=== PATIENT | female | born 1960 | race Caucasian/White ===

== ENCOUNTER → 2016-10-18 | Outpatient (CLI) | payer OTHER ==
[~2016-10-18] MED LIST: ASPEC81 PO; BENA20TA14 PO; ERGO1CAP35 PO; METAMUCIL TABS PO; OXYC-57 PO; SIMV20TA2 PO; SPIR25TA PO; VITA400C15 PO
--- NOTE | 2016-10-18 13:57 | MAMMOGRAPHY REPORT ---
BILATERAL DIGITAL SCREENING MAMMOGRAM WITH CAD: 10/18/2016 TECHNIQUE: Current study was also evaluated with a Computer Aided Detection (CAD) system. Bilateral CC and MLO views were obtained. COMPARISON: Comparison is made to exams dated: 10/18/2015 mammogram, 10/12/2014 mammogram, 10/11/2013 twin mogram, 10/02/2012 mammogram, 09/26/2011 mammogram, and 09/05/2010 mammogram - [facility]. BREAST COMPOSITION: There are scattered areas of fibroglandular density in both breasts. FINDINGS: No suspicious masses, calcifications, or areas of architectural distortion are noted in ei ther breast. There has been no significant interval change compared to prior exams. A linear scar ma rker denotes a scar on the left upper inner breast. Benign-appearing left breast calcifications are again noted. Nodular asymmetry in the right inferior breast on the MLO view is stable dating back to at least the 2007 exam. IMPRESSION: ACR BI-RADS CATEGORY 2: BENIGN There is no mammographic evidence of malignancy. A 1 year screening mammogram is recommended. The pa tient will receive written notification of the results. Approximately 10% of breast cancers are not detected with mammography. A negative mammographic report should not delay biopsy if a clinically suggestive mass is present. Bridget Arriaga M.D. /:10/18/2016 10:24:27 Ornament Stapler: Neema VERGARA(Grace)(Vijay), [facility] letter sent: Normal 1/2 BI-RADS Code: ACR BI-RADS Category 2: Benign
== END | disposition home or self-care (01) ==
LOC: C.MAMM 10:11
PROVIDERS: ATTEND Family Medicine
DX: Z12.31 Encounter for screening mammogram for malignant neoplasm of breast (principal)

== ENCOUNTER 2022-03-26 17:42 | Inpatient (IN) ==
[2022-03-26] MEDS ORDERED: SODIUM CHLORIDE 0.9% 1000ML 1,000 ML IV SCH (18:00)
--- NOTE | 2022-03-26 18:10 | Emergency Department Note ---
Impression & Plan Acute hyponatremia, Acute dehydration, Weakness, Abnormal CT of the head ED Provider Note NAME: BILLY POLANCO AGE: 61 SEX: F : 1960 ARRIVES VIA: Ambulance INFORMANT: Patient, the patient's family members ED PROVIDER(S): Patrick Guzmán DO CHIEF COMPLAINT: Weakness HPI: The patient is a 61-year-old female who has a history of a mass in her brain that was recently biopsied. 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 She had a biopsy a week ago and was sent to [facility] for inpatient rehab. She is not been doing well there where she has been having decreased p.o. intake and decreased activity including not involving her self with therapy. She had outpatient labs that showed that she is not doing well. She was sent to the emergency department by the rehab physician with the hopes that she could be admitted and placed somewhere for intensive inpatient rehab. The patient himself denies having any pain. She denies having any headache. She has no reported nausea or vomiting. She does state that she has very poor appetite. She has right-sided weakness at baseline because of the mass. She has had no recent trauma. ROS: See above HPI for pertinent positives & negatives. A total of 10 systems reviewed and were otherwise negative. PAST MEDICAL HISTORY: See Below PAST SURGICAL HISTORY: See Below FAMILY HISTORY: See Below SOCIAL HISTORY: See Below HOME MEDICATIONS: See Below ALLERGIES: See Below VITALS: See Below PHYSICAL EXAMINATION: GENERAL: Patient is listless but responds to questions. She does not appear to be uncomfortable. EYES: The conjunctivae are clear. The pupils midsize. There is reactivity of the left pupil. Ptosis was noted of the left eye. EARS, NOSE, MOUTH AND THROAT: The nose is without any evidence of any deformity. Mucous membranes are dry. NECK: The neck is nontender and supple. RESPIRATORY: Normal respiratory effort is noted there is no evidence of wheezing rhonchi or rales CARDIOVASCULAR: Regular rate and rhythm noted there no murmurs rubs or gallops normal S1 normal S2. GASTROINTESTINAL: The abdomen is soft. Abdomen is nontender. MUSCULOSKELETAL/EXTREMITIES: There is no evidence of gross deformity full range of motion is noted in the hips and shoulders. SKIN: No significant edema was appreciated. NEUROLOGIC: The patient is awake to verbal commands. She appears to be able to move her left side to some degree. MEDICAL DECISION MAKING: The patient is a 61-year-old female who has a history of renal transplant presented to the emergency department for generalized weakness. The patient has a recently diagnosed intracranial lesion which was biopsied recently. 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 The patient was sent to [facility] for inpatient rehab. She has not been doing well there. She has been having decreased p.o. intake and not participating in rehab activities. She was noted to have abnormal labs by the inpatient rehab doctor so she was sent to the emergency department for further evaluation. They do not feel that she is a good candidate for further inpatient management at their facility. I discussed the patient's laboratory and radiographic studies with the family. The patient was started on IV fluids in the emergency department. Because of her findings I [facility] to evaluate the patient in the emergency department for further management and disposition. Patient was given empiric antibiotics for an alanna vated white blood cell count. No definite infectious source was found. She was also cultured. Triage Nursing notes reviewed. Prior medical records reviewed Vital Signs: reviewed and remarkable for no significant abnormalities Differential diagnosis: Infection, dehydration, metabolic abnormality, hypo/hyperglycemia, electrolyte disturbance, anemia, hypoxia, cardiac sources, intracerebral event, toxicologic, neurologic, as well as other pathologies. ER treatment provided: See below Diagnostics interpreted by me: ECG: EKG was obtained in the emergency department. My interpretation is normal sinus rhythm at 92 bpm. There was no ectopy. Nonspecific T wave abnormalities were noted in the high lateral leads. This was compared to a tracing from April 16, 2010. No changes were noted. Cardiac Monitoring: An order was placed for continuous cardiac monitoring. The monitor shows a rate of 90 bpm with sinus rhythm. Laboratory studies: As stated above and show below. Imaging studies: See below. Radiographic imaging was reviewed by myself Consultation(s): I discussed this case with Dr. Phipps who [facility]. Past Med/Surg History Medical History CKD (chronic kidney disease) F/U DR JOHN WELLS Elevated LFTs Hyperlipidemia Hypertension Liver lesion Pancreatic cyst Peritoneal dialysis catheter in place PERFORMS NIGHTLY SINCE 03/22/21 Surgical History Abnormal biopsy of kidney X2 History of section X2 History of cholecystectomy History of colonoscopy History of hysterectomy History of parathyroidectomy HX: benign breast biopsy LEFT Nausea and vomiting after administration of anesthetic agent WITH BREAST BIOPSY Family History Mother Family history of diabetes mellitus Social History Smoking Status: Never smoker Second Hand Exposure: No; Do You Dip or Chew Tobacco: No; Hx Alcohol Use: No Hx Substance Use: No Preferred Language: Belarusian Communication Ability: Impaired Draw String Knotter Required: No Beliefs That Will Affect Care: None Current Living Situation: Rehab Current Living Situation Comment: [facility] current occupational status: retired Other Information That Helps Us Care for You: No Feels Safe at Home: Yes Safety Concerns: Feels Safe At This Time Assistive Devices: Glasses, Hearing Aid - Bilateral and Walker Allergies Allergies Allergy/AdvReac Type Severity Reaction Status Date / Time Sulfa (Sulfonamide Allergy Intermediate RED RASH Verified 03/26/22 20:51 Antibiotics) tramadol AdvReac Intermediate "MAKES ME Verified 03/26/22 20:51 OUT THERE AND SICK" amoxicillin [From Augmentin] AdvReac Unknown Nausea Verified 03/26/22 20:51 clavulanic acid AdvReac Unknown Nausea Verified 03/26/22 20:51 [From Augmentin] Home Meds Home Medications Medication Instructions Recorded Confirmed amlodipine 5 mg tablet 5 mg PO QAM 07/03/21 03/26/22 docusate sodium 100 mg capsule 100 mg PO BIDM 07/03/21 03/26/22 (Dulcolax Stool Softener (docusate)) acetaminophen 325 mg tablet 650 mg PO Q4H PRN Pain (Scale 03/26/22 03/26/22 (Tylenol) Score 1-3) atorvastatin 20 mg tablet 20 mg PO DAILY 03/26/22 03/26/22 bisacodyl 10 mg rectal suppository 10 mg VT DAILY PRN Constipation 03/26/22 03/26/22 insulin aspart U-100 100 unit/mL 6 unit subcut TIDM 03/26/22 03/26/22 subcutaneous solution (Novolog U-100 Insulin aspart) magnesium hydroxide 400 mg/5 mL 30 ml PO DAILY PRN Constipation 03/26/22 03/26/22 oral suspension (Milk of Magnesia) ondansetron HCl 4 mg tablet 4 mg PO Q4H PRN NAUSEA/VOMITING 03/26/22 03/26/22 polyethylene glycol 3350 17 17 g PO QDL PRN Constipation 03/26/22 03/26/22 gram/dose oral powder (Miralax) prednisone 10 mg tablet 10 mg PO DIRECTED 03/26/22 03/26/22 sennosides 8.6 mg-docusate sodium 1 tab-cap PO QDL PRN Constipation 03/26/22 03/26/22 50 mg tablet (Senokot-S) sodium phosphates 19 gram-7 118 ml VT DAILY PRN Constipation 03/26/22 03/26/22 gram/118 mL enema (Fleet Enema) sulfamethoxazole 800 1 tab PO Q12H 03/26/22 03/26/22 mg-trimethoprim 160 mg tablet (Bactrim DS) tacrolimus 1 mg tablet,extended 2 mg PO DAILY 03/26/22 03/26/22 release 24 hr (Envarsus XR) urea 15 gram oral powder packet 1 packet PO BIDM 03/26/22 03/26/22 Results & Data (ED) Vital Signs Vital Signs - 24 hr 03/26/22 17:55 03/26/22 17:55 03/26/22 17:55 Temperature 37.0 C Temperature Source Oral Pulse Rate 92 H Pulse Rate [Apical] Pulse Rhythm Regular Pulse Rhythm [Apical] Pulse Strength Normal Pulse Strength [Apical] Respiratory Rate 18 16 Respiratory Effort / Characteristics Non-Labored Non-Labored Respiratory Depth Normal Normal Respiratory Pattern Regular Regular Blood Pressure 96/73 L Blood Pressure [Left Arm] Blood Pressure Mean 80 Blood Pressure Mean [Left Arm] Blood Pressure Position Lying Blood Pressure Position [Left Arm] Pulse Oximetry 92 93 Oxygen Delivery Method Room Air Room Air Room Air Sepsis Recent Fever Within 48 Hours No Sepsis New/Unexplained Change in Mental Status No Sepsis Action Taken by Nursing No Action Required 03/26/22 18:00 03/26/22 20:00 Temperature Temperature Source Pulse Rate Pulse Rate [Apical] 84 Pulse Rhythm Pulse Rhythm [Apical] Regular Pulse Strength Pulse Strength [Apical] Normal Respiratory Rate 16 18 Respiratory Effort / Characteristics Non-Labored Respiratory Depth Normal Respiratory Pattern Regular Blood Pressure Blood Pressure [Left Arm] 116/77 Blood Pressure Mean Blood Pressure Mean [Left Arm] 90 Blood Pressure Position Blood Pressure Position [Left Arm] Lying Pulse Oximetry 100 Oxygen Delivery Method Room Air Room Air Sepsis Recent Fever Within 48 Hours Sepsis New/Unexplained Change in Mental Status Sepsis Action Taken by Long-Term Medications Current Medication List: was personally reviewed by me Laboratory Data Attestation: I reviewed the patient's lab results. 03/26/22 18:12 03/26/22 21:30 Lab Results 03/26/22 03/26/22 03/26/22 Range/Units 18:12 18:12 18:12 WBC 20.48 H (4.8-10.8) K/ul RBC 5.35 H (3.93-5.22) M/uL Hgb 16.5 H (12.0-16.0) g/dl Hct 48.7 H (34.1-44.9) % MCV 91.0 (80.0-100.0) fL MCH 30.8 (25.0-34.0) pg MCHC 33.9 (32.0-36.0) g/dL RDW Std Deviation 50.6 H (36.4-46.3) fL RDW Coeff of Luz 15.3 H (11.5-14.5) % Plt Count 46 L (130-400) K/uL MPV 12.1 (9.4-12.3) fL Immature Gran % (Auto) 2.5 % Neut % (Auto) 74.2 % Lymph % (Auto) 17.8 % [place] % (Auto) 4.9 % Eos % (Auto) 0.1 % Baso % (Auto) 0.5 % Neut # (Auto) 15.19 H (1.4-6.5) K/uL Lymph # (Auto) 3.64 H (1.2-3.4) K/uL [place] # (Auto) 1.01 H (0.24-0.82) K/uL Eos # (Auto) 0.02 (0-0.50) K/uL Baso # (Auto) 0.11 (0-0.2) K/uL Immature Gran # (Auto) 0.51 H (0.00-0.02) K/uL Platelet Estimate Decreased L (Normal) PT 11.0 (9.0-12.0) Seconds INR 1.0 (0.9-1.1) APTT 34.9 H (21.0-31.0) Seconds PTT Ratio 1.3 Sodium 124 L (136-145) mmol/L Potassium TNP Chloride 95 L (98-107) mmol/L Carbon Dioxide 21 (21-32) mmol/L Anion Gap 8 (3-11) BUN 55 H (6-23) mg/dl Creatinine 1.44 H (0.6-1.2) mg/dl Est Cr Clr Drug Dosing 41.4 ml/min Est GFR ( Amer) 44.7 ml/min Est GFR (Non-Af Amer) 38.6 ml/min BUN/Creatinine Ratio 38.2 H (10-20) Glucose 219 H (70-99(Fasting)) mg/dl Osmolality (280-300) mOsm/kg Calcium 9.0 (8.5-10.1) mg/dl Magnesium 2.0 (1.7-2.4) mg/dl Total Bilirubin 0.6 (0.2-1.0) mg/dl AST TNP ALT 263 H (7-52) U/L Alkaline Phosphatase 223 H (34-104) U/L Ammonia (18-72) umol/L Total Creatine Kinase 42 (26-192) U/L Troponin I High Sens 65.6 H* (0-14) pg/ml Total Protein 6.2 (6.0-8.3) gm/dl Albumin 2.9 L (3.4-5.0) gm/dl Globulin 3.3 (2.5-4.0) gm/dl Albumin/Globulin Ratio 0.9 (0.9-2) TSH (0.300-4.500) uIu/ml Random Cortisol mcg/dl Urine Color Urine Appearance (Clear) Urine pH (4.5-7.5) Ur Specific [place] (1.000-1.030) Urine Protein (Negative) Urine Glucose (UA) (Negative) Urine Ketones (Negative) Urine Blood (Negative) Urine Nitrite (Negative) Urine Bilirubin (Negative) Urine Urobilinogen (Negative) Ur Leukocyte Esterase (Negative) Urine WBC (Auto) (0-5) /hpf Urine RBC (Auto) (0-4) /hpf U Hyaline Cast (Auto) (0-5) /lpf U Epithel Cells (Auto) (0-5) /lpf Urine Bacteria (Auto) (Negative) SARS-CoV-2, RNA, NAAT (NEGATIVE) 03/26/22 03/26/22 03/26/22 Range/Units 18:12 18:12 18:12 WBC (4.8-10.8) K/ul RBC (3.93-5.22) M/uL Hgb (12.0-16.0) g/dl Hct (34.1-44.9) % MCV (80.0-100.0) fL MCH (25.0-34.0) pg MCHC (32.0-36.0) g/dL RDW Std Deviation (36.4-46.3) fL RDW Coeff of Luz (11.5-14.5) % Plt Count (130-400) K/uL MPV (9.4-12.3) fL Immature Gran % (Auto) % Neut % (Auto) % Lymph % (Auto) % [place] % (Auto) % Eos % (Auto) % Baso % (Auto) % Neut # (Auto) (1.4-6.5) K/uL Lymph # (Auto) (1.2-3.4) K/uL [place] # (Auto) (0.24-0.82) K/uL Eos # (Auto) (0-0.50) K/uL Baso # (Auto) (0-0.2) K/uL Immature Gran # (Auto) (0.00-0.02) K/uL Platelet Estimate (Normal) PT (9.0-12.0) Seconds INR (0.9-1.1) APTT (21.0-31.0) Seconds PTT Ratio Sodium (136-145) mmol/L Potassium Chloride (98-107) mmol/L Carbon Dioxide (21-32) mmol/L Anion Gap (3-11) BUN (6-23) mg/dl Creatinine (0.6-1.2) mg/dl Est Cr Clr Drug Dosing ml/min Est GFR ( Amer) ml/min Est GFR (Non-Af Amer) ml/min BUN/Creatinine Ratio (10-20) Glucose (70-99(Fasting)) mg/dl Osmolality (280-300) mOsm/kg Calcium (8.5-10.1) mg/dl Magnesium (1.7-2.4) mg/dl Total Bilirubin (0.2-1.0) mg/dl AST ALT (7-52) U/L Alkaline Phosphatase (34-104) U/L Ammonia (18-72) umol/L Total Creatine Kinase (26-192) U/L Troponin I High Sens (0-14) pg/ml Total Protein (6.0-8.3) gm/dl Albumin (3.4-5.0) gm/dl Globulin (2.5-4.0) gm/dl Albumin/Globulin Ratio (0.9-2) TSH 1.192 (0.300-4.500) uIu/ml Random Cortisol 20.79 mcg/dl Urine Color Urine Appearance (Clear) Urine pH (4.5-7.5) Ur Specific [place] (1.000-1.030) Urine Protein (Negative) Urine Glucose (UA) (Negative) Urine Ketones (Negative) Urine Blood (Negative) Urine Nitrite (Negative) Urine Bilirubin (Negative) Urine Urobilinogen (Negative) Ur Leukocyte Esterase (Negative) Urine WBC (Auto) (0-5) /hpf Urine RBC (Auto) (0-4) /hpf U Hyaline Cast (Auto) (0-5) /lpf U Epithel Cells (Auto) (0-5) /lpf Urine Bacteria (Auto) (Negative) SARS-CoV-2, RNA, NAAT POSITIVE A* (NEGATIVE) 03/26/22 03/26/22 03/26/22 Range/Units 18:21 20:54 21:12 WBC (4.8-10.8) K/ul RBC (3.93-5.22) M/uL Hgb (12.0-16.0) g/dl Hct (34.1-44.9) % MCV (80.0-100.0) fL MCH (25.0-34.0) pg MCHC (32.0-36.0) g/dL RDW Std Deviation (36.4-46.3) fL RDW Coeff of Luz (11.5-14.5) % Plt Count (130-400) K/uL MPV (9.4-12.3) fL Immature Gran % (Auto) % Neut % (Auto) % Lymph % (Auto) % [place] % (Auto) % Eos % (Auto) % Baso % (Auto) % Neut # (Auto) (1.4-6.5) K/uL Lymph # (Auto) (1.2-3.4) K/uL [place] # (Auto) (0.24-0.82) K/uL Eos # (Auto) (0-0.50) K/uL Baso # (Auto) (0-0.2) K/uL Immature Gran # (Auto) (0.00-0.02) K/uL Platelet Estimate (Normal) PT (9.0-12.0) Seconds INR (0.9-1.1) APTT (21.0-31.0) Seconds PTT Ratio Sodium (136-145) mmol/L Potassium Chloride (98-107) mmol/L Carbon Dioxide (21-32) mmol/L Anion Gap (3-11) BUN (6-23) mg/dl Creatinine (0.6-1.2) mg/dl Est Cr Clr Drug Dosing ml/min Est GFR ( Amer) ml/min Est GFR (Non-Af Amer) ml/min BUN/Creatinine Ratio (10-20) Glucose (70-99(Fasting)) mg/dl Osmolality 288 (280-300) mOsm/kg Calcium (8.5-10.1) mg/dl Magnesium (1.7-2.4) mg/dl Total Bilirubin (0.2-1.0) mg/dl AST ALT (7-52) U/L Alkaline Phosphatase (34-104) U/L Ammonia 55.0 (18-72) umol/L Total Creatine Kinase (26-192) U/L Troponin I High Sens (0-14) pg/ml Total Protein (6.0-8.3) gm/dl Albumin (3.4-5.0) gm/dl Globulin (2.5-4.0) gm/dl Albumin/Globulin Ratio (0.9-2) TSH (0.300-4.500) uIu/ml Random Cortisol mcg/dl Urine Color Yellow Urine Appearance Clear (Clear) Urine pH 6.0 (4.5-7.5) Ur Specific [place] 1.025 (1.000-1.030) Urine Protein Trace H (Negative) Urine Glucose (UA) Negative (Negative) Urine Ketones Negative (Negative) Urine Blood Negative (Negative) Urine Nitrite Negative (Negative) Urine Bilirubin Negative (Negative) Urine Urobilinogen Negative (Negative) Ur Leukocyte Esterase Negative (Negative) Urine WBC (Auto) 1-5 (0-5) /hpf Urine RBC (Auto) 0-4 (0-4) /hpf U Hyaline Cast (Auto) 1-5 (0-5) /lpf U Epithel Cells (Auto) 5-10 H (0-5) /lpf Urine Bacteria (Auto) Negative (Negative) SARS-CoV-2, RNA, NAAT (NEGATIVE) 03/26/22 03/26/22 03/26/22 Range/Units 21:30 21:30 21:30 WBC (4.8-10.8) K/ul RBC (3.93-5.22) M/uL Hgb (12.0-16.0) g/dl Hct (34.1-44.9) % MCV (80.0-100.0) fL MCH (25.0-34.0) pg MCHC (32.0-36.0) g/dL RDW Std Deviation (36.4-46.3) fL RDW Coeff of Luz (11.5-14.5) % Plt Count (130-400) K/uL MPV (9.4-12.3) fL Immature Gran % (Auto) % Neut % (Auto) % Lymph % (Auto) % [place] % (Auto) % Eos % (Auto) % Baso % (Auto) % Neut # (Auto) (1.4-6.5) K/uL Lymph # (Auto) (1.2-3.4) K/uL [place] # (Auto) (0.24-0.82) K/uL Eos # (Auto) (0-0.50) K/uL Baso # (Auto) (0-0.2) K/uL Immature Gran # (Auto) (0.00-0.02) K/uL Platelet Estimate (Normal) PT (9.0-12.0) Seconds INR (0.9-1.1) APTT (21.0-31.0) Seconds PTT Ratio Sodium (136-145) mmol/L Potassium 5.3 H Chloride (98-107) mmol/L Carbon Dioxide (21-32) mmol/L Anion Gap (3-11) BUN (6-23) mg/dl Creatinine (0.6-1.2) mg/dl Est Cr Clr Drug Dosing ml/min Est GFR ( Amer) ml/min Est GFR (Non-Af Amer) ml/min BUN/Creatinine Ratio (10-20) Glucose (70-99(Fasting)) mg/dl Osmolality (280-300) mOsm/kg Calcium (8.5-10.1) mg/dl Magnesium (1.7-2.4) mg/dl Total Bilirubin (0.2-1.0) mg/dl AST 146 H ALT (7-52) U/L Alkaline Phosphatase (34-104) U/L Ammonia (18-72) umol/L Total Creatine Kinase 44 (26-192) U/L Troponin I High Sens 69.9 H* (0-14) pg/ml Total Protein (6.0-8.3) gm/dl Albumin (3.4-5.0) gm/dl Globulin (2.5-4.0) gm/dl Albumin/Globulin Ratio (0.9-2) TSH (0.300-4.500) uIu/ml Random Cortisol mcg/dl Urine Color Urine Appearance (Clear) Urine pH (4.5-7.5) Ur Specific [place] (1.000-1.030) Urine Protein (Negative) Urine Glucose (UA) (Negative) Urine Ketones (Negative) Urine Blood (Negative) Urine Nitrite (Negative) Urine Bilirubin (Negative) Urine Urobilinogen (Negative) Ur Leukocyte Esterase (Negative) Urine WBC (Auto) (0-5) /hpf Urine RBC (Auto) (0-4) /hpf U Hyaline Cast (Auto) (0-5) /lpf U Epithel Cells (Auto) (0-5) /lpf Urine Bacteria (Auto) (Negative) SARS-CoV-2, RNA, NAAT (NEGATIVE) Administered Medications Insulin Aspart (Insulin Aspart Per Unit) 0 units SC ACHS JUSTIN Stop: 04/26/22 00:18 Last Admin: 03/27/22 00:39 Dose: Not Given Documented By: ALH Discontinued Medications Gadobutrol (Gadobutrol 65ml Vial) 7 ml IV ONCE ONE Stop: 03/26/22 23:10 Last Admin: 03/26/22 23:09 Dose: 7 ml Documented By: ESHA Sodium Chloride (Nss 1000ml) 1,000 mls @ 999 mls/hr IV .Q1H1M JUSTIN Stop: 03/26/22 19:00 Last Infusion: 03/26/22 19:24 Dose: 0 mls/hr Documented By: Admin: 03/26/22 18:16 Dose: 999 mls/hr Documented By: SR Sodium Chloride (Nss 1000ml) 1,000 mls @ 999 mls/hr IV .Q1H1M ONE Stop: 03/26/22 21:16 Last Infusion: 03/26/22 22:44 Dose: 0 mls/hr Documented By: Admin: 03/26/22 21:49 Dose: 999 mls/hr Documented By: MATS Ceftriaxone Sodium (Rocephin) 2,000 mg in 70 mls @ 140 mls/hr IV NOW STA Stop: 03/26/22 20:45 Last Infusion: 03/26/22 22:28 Dose: 0 mls/hr Documented By: Admin: 03/26/22 21:49 Dose: 140 mls/hr Documented By: KARLA Trimethoprim/Sulfamethoxazole (Sulfamethoxazole/Trimethoprim Ds 800/160mg Tab) 1 tab PO 0100 ONE Stop: 03/27/22 01:01 Last Admin: 03/27/22 01:41 Dose: 1 tab Documented By: DRISS Imaging Data Radiologist's Impression: Chest X-Ray 03/26/22 17:59 XR chest 1V portable HISTORY: weakness COMPARISON: Chest 04/16/2010. FINDINGS: The lungs are clear. Cardiac silhouette is normal in size. No pleural effusions. No pneumothorax. Prior cholecystectomy. IMPRESSION: No acute process. ACT 112: Negative or not required by law. Electronically signed by: Danis Morrison M.D. 03/26/2022 8:[address] 03/26/22 17:[address] DOSE: 537.48 mGy.cm HISTORY: weakness TECHNIQUE: Multiaxial CT images of the head were performed without the use of intravenous contrast. Automated exposure control was utilized for this study. A dose lowering technique was utilized adhering to the principles of ALARA. Comparison: None. Findings: The paranasal sinuses and mastoid air cells are clear. Prior left parietal craniotomy. Small extra-axial hyperdense collection and a punctate focus of gas deep to the craniotomy site. The hyperdense collection measures 3.1 x 1.0 cm. This could represent expected postoperative fluid collection or a small focus of extra-axial hemorrhage. 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 Mild atrophy and microvascular ischemic changes are noted. No acute infarct or midline shift identified. Impression: Status post left parietal craniotomy. Deep to the craniotomy site there is a 3.1 x 1.0 cm hyperdense extra-axial collection containing a punctate focus of gas. This could represent an expected postoperative fluid collection or a small focus of acute extra-axial hemorrhage. Comparison to prior studies would be helpful to assess for stability. ACT 112: Negative or not required by law. Electronically signed by: Danis Morrison M.D. 03/26/2022 8:07 PM Discharge Plan Visit Data Chief Complaint: Weakness Stated Complaint: WEAKNESS, LETHARGIC ED Provider: Patrick Guzmán Discharge Problem: Acute hyponatremia, Acute dehydration, Weakness, Abnormal CT of the head Patient Disposition: Admitted As Inpatient Discharge Instructions Interventions: ED Discharge Assessment Last Done: 03/26/22 23:52
[2022-03-26 18:50] LABS: Partial Thromboplastin Ratio 1.3; Partial Thromboplastin Time 34.9 Seconds (21.0-31.0)
[2022-03-26 19:08] LABS: Troponin I High Sensitivity 65.6 pg/ml (0-14)
[2022-03-26 19:21] LABS: Alanine Aminotransferase 263 U/L (7-52); Albumin Globulin Ratio 0.9 (0.9-2); Albumin Level 2.9 gm/dl (3.4-5.0); Alkaline Phosphatase 223 U/L (34-104); Anion Gap 8 (3-11); BUN Creatinine Ratio 38.2 (10-20); Bilirubin,Total 0.6 mg/dl (0.2-1.0); Blood Urea Nitrogen 55 mg/dl (6-23); Carbon Dioxide 21 mmol/L (21-32); Chloride 95 mmol/L (98-107); Creatine Kinase 42 U/L (26-192); Creatinine Clr Calc Pharmacy 41.4 ml/min; Est GFR (African American) 44.7 ml/min; Est GFR (Non-African American) 38.6 ml/min; Globulin 3.3 gm/dl (2.5-4.0); Glucose 219 mg/dl (70-99(Fasting)); Sodium 124 mmol/L (136-145); Total Protein 6.2 gm/dl (6.0-8.3)
--- NOTE | 2022-03-26 20:10 | CT Scan Report ---
HEAD CT NONCONTRAST CT DOSE: 537.48 mGy.cm HISTORY: weakness TECHNIQUE: Multiaxial CT images of the head were performed without the use of intravenous contrast. A utomated exposure control was utilized for this study. A dose lowering technique was utilized adheri ng to the principles of ALARA. Comparison: None. Findings: The paranasal sinuses and mastoid air cells are clear. Prior left parietal craniotomy. Smal l extra-axial hyperdense collection and a punctate focus of gas deep to the craniotomy site. The hype rdense collection measures 3.1 x 1.0 cm. This could represent expected postoperative fluid collection or a small focus of extra-axial hemorrhage. 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 Mild atroph y and microvascular ischemic changes are noted. No acute infarct or midline shift identified. Impression: Status post left parietal craniotomy. Deep to the craniotomy site there is a 3.1 x 1.0 cm hyperdense extra-axial collection containing a punctate focus of gas. This could represent an expected postopera tive fluid collection or a small focus of acute extra-axial hemorrhage. Comparison to prior studies w ould be helpful to assess for stability. ACT 112: Negative or not required by law. Electronically signed by: Danis Morrison M.D. 03/26/2022 8:07 PM
[2022-03-26 20:13] LABS: Basophils # (auto) 0.11 K/uL (0-0.2); Basophils % (auto) 0.5 %; Eosinophils # (auto) 0.02 K/uL (0-0.50); Eosinophils % (auto) 0.1 %; Hematocrit (blood only) 48.7 % (34.1-44.9); Hemoglobin 16.5 g/dl (12.0-16.0); Immature Granulocytes # (auto) 0.51 K/uL (0.00-0.02); Immature Granulocytes % (auto) 2.5 %; Lymphocytes # (auto) 3.64 K/uL (1.2-3.4); Lymphocytes % (auto) 17.8 %; Mean Corpuscular Hemoglobin 30.8 pg (25.0-34.0); Mean Corpuscular Hgb Conc 33.9 g/dL (32.0-36.0); Mean Platelet Volume 12.1 fL (9.4-12.3); Monocytes # (auto) 1.01 K/uL (0.24-0.82); Monocytes % (auto) 4.9 %; Neutrophils # (auto) 15.19 K/uL (1.4-6.5); Neutrophils % (auto) 74.2 %; Platelet Count 46 K/uL (130-400); Platelet Estimate Decreased (Normal); RDW Coefficient of Variation 15.3 % (11.5-14.5); RDW Standard Deviation 50.6 fL (36.4-46.3); Red Blood Count 5.35 M/uL (3.93-5.22); White Blood Count 20.48 K/ul (4.8-10.8)
--- NOTE | 2022-03-26 20:15 | XRay Report ---
XR chest 1V portable HISTORY: weakness COMPARISON: Chest 04/16/2010. FINDINGS: The lungs are clear. Cardiac silhouette is normal in size. No pleural effusions. No pneumot horax. Prior cholecystectomy. IMPRESSION: No acute process. ACT 112: Negative or not required by law. Electronically signed by: Danis Morrison M.D. 03/26/2022 8:13 PM
[2022-03-26] MEDS ORDERED: cefTRIAXone SODIUM 2,000 MG/70 ML BAG IV STA (20:16)
[2022-03-26] MEDS ORDERED: SODIUM CHLORIDE 0.9% 1000ML 1,000 ML IV ONE (20:16)
[2022-03-26 21:17] LABS: Appearance Urine Clear (Clear); Bacteria Urine Automated Negative (Negative); Bilirubin Urine Negative (Negative); Blood Urine Negative (Negative); Color Urine Yellow; Glucose Urine UA Negative (Negative); Ketones Urine Negative (Negative); Leukocyte Esterase Urine Negative (Negative); Nitrite Urine Negative (Negative); Protein Urine Trace (Negative); RBC Urine Automated 0-4 /hpf (0-4); Specific Gravity Urine 1.025 (1.000-1.030); Urobilinogen Urine Negative (Negative)
--- NOTE | 2022-03-26 21:36 | History & Physical Report ---
Date of Service March 26, 2022 Assessment & Plan (1) RUE weakness: Plan: Rule out progression of [employer] toxoplasmosis, ongoing Bactrim Rx ARF secondary to decreased p.o. 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 Hyperkalemia secondary to ARF Bactrim Rx contributory Transaminitis, thrombocytopenia possible Bactrim side effects hypertension, stable hyperlipidemia on statin Rx Hx hyperthyroidism as per records, TSH within normal limits, patient never received treatment on review of outpatient Endocrinology notes primary hyperparathyroidism status post surgery right renal tumor possible malignancy hx MGUS chronic polycythemia possibly from renal tumor steroid-induced hyperglycemia, hemoglobin A1c of 5.2 from December 2021 Medical telemetry Neurochecks Follow official brain MRI result Further management pending official read Supportive management for COVID-19 illness. 1 L fluid restriction and urea for secondary SIADH Monitor creatinine, potassium response to initial fluid bolus given at the ER Appropriate to hold Bactrim for now Contact [facility] ID (Dr. Reyes ) given possible Bactrim toxicity (transaminitis, thrombocytopenia, hyperkalemia) Outpatient Urology consultation for right renal tumor DVT prophylaxis. SCDs Re: Thrombocytopenia Full code Patient requesting updates providers. Mr. Alvarado James, contact #[phone]. Text document was generated using [employer]ie[employer] voice recognition software. It may contain grammatical or spelling errors. Kindly contact undersigned for clarification of any documentation item in question. History of Present Illness Chief Complaint: Worsening right upper extremity weakness Primary Care Provider: [facility] History obtained from patient, family, and records. 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 Recent confinement [facility] February 27, 2022 to March 20, 2022 for right-sided weakness and left eye ptosis attributed to [employer] toxoplasmosis with note of positive serology. Brain biopsy done March 08, 2022 was negative for malignancy given initial concern for lymphoma given immunocompromise from immunosuppression regimen. [facility] ID recommended 6 weeks of Bactrim double strength 2 tabs twice daily (until 04/26) followed by 1 tablet daily indefinitely. Lokelma 3 times a week recommended to help with hyperkalemia while on Bactrim. Patient to continue tacrolimus and prednisone immunosuppressants. Mycophenolic acid recommended to be held due to [employer] infection. Brain MRI (03/18/2022) results as follows: Since 02/26/2022, known numerous cortical and leptomeningeal enhancing lesions are overall smaller, and associated signal abnormalities have improved. No new lesions are seen. Interval left parietal mini-craniotomy for biopsy of underlying lesion. Irregular enhancement at the lesion biopsy site is larger. Given improvement of nearly all other lesions, this progression is likely postsurgical/inflammatory. Pachymeningeal thickening and enhancement subjacent craniotomy and diffusely over the left convexity is favored to be reactive. Small volume extradural fluid and blood products collection is largely confined within the craniotomy margins. Follow-up brain MRI recommended April 2021. 1 L fluid restriction and urea recommended for hyponatremia/SIADH secondary to [employer] toxoplasmosis. Right renal tumor possible malignancy incidentally found on CT abdomen pelvis work-up during [facility] confinement. Outpatient urology evaluation recommended. Patient discharged to [facility] facility last week. Decreased p.o. intake and activity over the last few days. Cough symptoms productive of clear sputum without chest pain or shortness of breath. Patient with COVID-19 infection. This afternoon patient right upper extremity noted to be weaker than usual. Patient leaning more to the right side. Patient denies headache, nausea vomiting symptoms. Patient brought to the ER for evaluation. 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 Allergies Allergy/AdvReac Type Severity Reaction Status Date / Time Sulfa (Sulfonamide Allergy Intermediate RED RASH Verified 03/26/22 20:51 Antibiotics) tramadol AdvReac Intermediate "MAKES ME Verified 03/26/22 20:51 OUT THERE AND SICK" amoxicillin [From Augmentin] AdvReac Unknown Nausea Verified 03/26/22 20:51 clavulanic acid AdvReac Unknown Nausea Verified 03/26/22 20:51 [From Augmentin] Home Medications Medication Instructions Recorded Confirmed Type amlodipine 5 mg tablet 5 mg PO QAM 07/03/21 03/26/22 History docusate sodium 100 mg capsule 100 mg PO BIDM 07/03/21 03/26/22 History (Dulcolax Stool Softener (docusate)) acetaminophen 325 mg tablet 650 mg PO Q4H PRN Pain (Scale 03/26/22 03/26/22 History (Tylenol) Score 1-3) atorvastatin 20 mg tablet 20 mg PO DAILY 03/26/22 03/26/22 History bisacodyl 10 mg rectal suppository 10 mg NC DAILY PRN Constipation 03/26/22 03/26/22 History insulin aspart U-100 100 unit/mL 6 unit subcut TIDM 03/26/22 03/26/22 History subcutaneous solution (Novolog U-100 Insulin aspart) magnesium hydroxide 400 mg/5 mL 30 ml PO DAILY PRN Constipation 03/26/22 03/26/22 History oral suspension (Milk of Magnesia) ondansetron HCl 4 mg tablet 4 mg PO Q4H PRN NAUSEA/VOMITING 03/26/22 03/26/22 History polyethylene glycol 3350 17 17 g PO QDL PRN Constipation 03/26/22 03/26/22 History gram/dose oral powder (Miralax) prednisone 10 mg tablet 10 mg PO DIRECTED 03/26/22 03/26/22 History sennosides 8.6 mg-docusate sodium 1 tab-cap PO QDL PRN Constipation 03/26/22 03/26/22 History 50 mg tablet (Senokot-S) sodium phosphates 19 gram-7 118 ml NC DAILY PRN Constipation 03/26/22 03/26/22 History gram/118 mL enema (Fleet Enema) sulfamethoxazole 800 1 tab PO Q12H 03/26/22 03/26/22 History mg-trimethoprim 160 mg tablet (Bactrim DS) tacrolimus 1 mg tablet,extended 2 mg PO DAILY 03/26/22 03/26/22 History release 24 hr (Envarsus XR) urea 15 gram oral powder packet 1 packet PO BIDM 03/26/22 03/26/22 History Past Med/Surg History Medical History (Updated 03/27/22 @ 13:29 by Danielle Garduno MD, PhD) [employer] toxoplasmosis Electrolyte and fluid disorder Elevated LFTs ESRD (end stage renal disease) from fibrillary GN on PD x years then s/p 10/[address] [facility] Hyperlipidemia Hypertension Liver lesion Pancreatic cyst Status post stereotactic brain biopsy [facility] February 2022 Thrombocytopenia Surgical History (Updated 03/27/22 @ 13:13 by Danielle Garduno MD, PhD) Abnormal biopsy of kidney X2 History of section X2 History of cholecystectomy History of colonoscopy History of hysterectomy History of parathyroidectomy HX: benign breast biopsy LEFT Nausea and vomiting after administration of anesthetic agent WITH BREAST BIOPSY Renal transplant recipient Family History Mother Family history of diabetes mellitus Social History Smoking Status: Never smoker Second Hand Exposure: No; Do You Dip or Chew Tobacco: No; Hx Alcohol Use: No Hx Substance Use: No Preferred Language: Israeli Communication Ability: Impaired Trimmer Sorter Required: No Beliefs That Will Affect Care: None Current Living Situation: Rehab Current Living Situation Comment: [facility] current occupational status: retired Other Information That Helps Us Care for You: No Feels Safe at Home: Yes Safety Concerns: Feels Safe At This Time Assistive Devices: Glasses, Hearing Aid - Bilateral and Walker Review of Systems Review of Systems: As per HPI, all other systems reviewed and negative Physical Exam Physical Exam: GENERAL: Slightly uncomfortable, mild dysarthria, no respiratory distress SKIN: Normal color, warm HEENT: Sparse hair, pale palpebral conjunctivae, left ptosis, dry buccal mucosa NECK : Supple, no tenderness CHEST : CTA, no tenderness HEART : RRR, no obvious murmurs ABDOMEN: Some distention, nontender EXTREMITIES : No LE swelling/tenderness, no other conspicuous deformities noted NEUROLOGIC : Coherent, left ptosis, mild dysarthria, MMTs RUE 3/5, RLE 2/5, LUE/LLE 4/5, gait and stance not assessed Results & Data Results & Data ([facility]) Vital Signs (Past 12 Hours) Vital Signs Temp Pulse Pulse Resp BP BP Pulse Ox 03/26/22 20:00 84 18 116/77 100 03/26/22 18:00 16 03/26/22 17:55 16 93 03/26/22 17:55 03/26/22 17:55 37.0 C 92 H 18 96/73 L 92 O2 Del Method 03/26/22 20:00 Room Air 03/26/22 18:00 Room Air 03/26/22 17:55 Room Air 03/26/22 17:55 Room Air 03/26/22 17:55 Room Air Laboratory Results Laboratory Results WBC 20.48 K/ul (4.8-10.8) H 03/26/22 18:12 RBC 5.35 M/uL (3.93-5.22) H 03/26/22 18:12 Hgb 16.5 g/dl (12.0-16.0) H 03/26/22 18:12 Hct 48.7 % (34.1-44.9) H 03/26/22 18:12 MCV 91.0 fL (80.0-100.0) 03/26/22 18:12 MCH 30.8 pg (25.0-34.0) 03/26/22 18:12 MCHC 33.9 g/dL (32.0-36.0) 03/26/22 18:12 RDW Std Deviation 50.6 fL (36.4-46.3) H 03/26/22 18:12 RDW Coeff of Luz 15.3 % (11.5-14.5) H 03/26/22 18:12 Plt Count 46 K/uL (130-400) L 03/26/22 18:12 MPV 12.1 fL (9.4-12.3) 03/26/22 18:12 Immature Gran % (Auto) 2.5 % 03/26/22 18:12 Neut % (Auto) 74.2 % 03/26/22 18:12 Lymph % (Auto) 17.8 % 03/26/22 18:12 [place] % (Auto) 4.9 % 03/26/22 18:12 Eos % (Auto) 0.1 % 03/26/22 18:12 Baso % (Auto) 0.5 % 03/26/22 18:12 Neut # (Auto) 15.19 K/uL (1.4-6.5) H 03/26/22 18:12 Lymph # (Auto) 3.64 K/uL (1.2-3.4) H 03/26/22 18:12 [place] # (Auto) 1.01 K/uL (0.24-0.82) H 03/26/22 18:12 Eos # (Auto) 0.02 K/uL (0-0.50) 03/26/22 18:12 Baso # (Auto) 0.11 K/uL (0-0.2) 03/26/22 18:12 Immature Gran # (Auto) 0.51 K/uL (0.00-0.02) H 03/26/22 18:12 Platelet Estimate Decreased (Normal) L 03/26/22 18:12 PT 11.0 Seconds (9.0-12.0) 03/26/22 18:12 INR 1.0 (0.9-1.1) 03/26/22 18:12 APTT 34.9 Seconds (21.0-31.0) H 03/26/22 18:12 PTT Ratio 1.3 03/26/22 18:12 Sodium 124 mmol/L (136-145) L 03/26/22 18:12 Potassium TNP 03/26/22 18:12 Chloride 95 mmol/L (98-107) L 03/26/22 18:12 Carbon Dioxide 21 mmol/L (21-32) 03/26/22 18:12 Anion Gap 8 (3-11) 03/26/22 18:12 BUN 55 mg/dl (6-23) H 03/26/22 18:12 Creatinine 1.44 mg/dl (0.6-1.2) H 03/26/22 18:12 Est Cr Clr Drug Dosing 41.4 ml/min 03/26/22 18:12 Est GFR ( Amer) 44.7 ml/min 03/26/22 18:12 Est GFR (Non-Af Amer) 38.6 ml/min 03/26/22 18:12 BUN/Creatinine Ratio 38.2 (10-20) H 03/26/22 18:12 Glucose 219 mg/dl (70-99(Fasting)) H 03/26/22 18:12 Calcium 9.0 mg/dl (8.5-10.1) 03/26/22 18:12 Magnesium 2.0 mg/dl (1.7-2.4) 03/26/22 18:12 Total Bilirubin 0.6 mg/dl (0.2-1.0) 03/26/22 18:12 AST TNP 03/26/22 18:12 ALT 263 U/L (7-52) H 03/26/22 18:12 Alkaline Phosphatase 223 U/L (34-104) H 03/26/22 18:12 Total Creatine Kinase 42 U/L (26-192) 03/26/22 18:12 Troponin I High Sens 65.6 pg/ml (0-14) H* 03/26/22 18:12 Total Protein 6.2 gm/dl (6.0-8.3) 03/26/22 18:12 Albumin 2.9 gm/dl (3.4-5.0) L 03/26/22 18:12 Globulin 3.3 gm/dl (2.5-4.0) 03/26/22 18:12 Albumin/Globulin Ratio 0.9 (0.9-2) 03/26/22 18:12 TSH 1.192 uIu/ml (0.300-4.500) 03/26/22 18:12 Random Cortisol 20.79 mcg/dl 03/26/22 18:12 Urine Color Yellow 03/26/22 20:54 Urine Appearance Clear (Clear) 03/26/22 20:54 Urine pH 6.0 (4.5-7.5) 03/26/22 20:54 Ur Specific [place] 1.025 (1.000-1.030) 03/26/22 20:54 Urine Protein Trace (Negative) H 03/26/22 20:54 Urine Glucose (UA) Negative (Negative) 03/26/22 20:54 Urine Ketones Negative (Negative) 03/26/22 20:54 Urine Blood Negative (Negative) 03/26/22 20:54 Urine Nitrite Negative (Negative) 03/26/22 20:54 Urine Bilirubin Negative (Negative) 03/26/22 20:54 Urine Urobilinogen Negative (Negative) 03/26/22 20:54 Ur Leukocyte Esterase Negative (Negative) 03/26/22 20:54 Urine WBC (Auto) 1-5 /hpf (0-5) 03/26/22 20:54 Urine RBC (Auto) 0-4 /hpf (0-4) 03/26/22 20:54 U Hyaline Cast (Auto) 1-5 /lpf (0-5) 03/26/22 20:54 U Epithel Cells (Auto) 5-10 /lpf (0-5) H 03/26/22 20:54 Urine Bacteria (Auto) Negative (Negative) 03/26/22 20:54 SARS-CoV-2, RNA, NAAT POSITIVE (NEGATIVE) A* 03/26/22 18:12 Impressions Chest X-Ray 03/26/22 17:59 XR chest 1V portable HISTORY: weakness COMPARISON: Chest 04/16/2010. FINDINGS: The lungs are clear. Cardiac silhouette is normal in size. No pleural effusions. No pneumothorax. Prior cholecystectomy. IMPRESSION: No acute process. ACT 112: Negative or not required by law. Electronically signed by: Danis Morrison M.D. 03/26/2022 8:[address] 03/26/22 17:[address] DOSE: 537.48 mGy.cm HISTORY: weakness TECHNIQUE: Multiaxial CT images of the head were performed without the use of intravenous contrast. Automated exposure control was utilized for this study. A dose lowering technique was utilized adhering to the principles of ALARA. Comparison: None. Findings: The paranasal sinuses and mastoid air cells are clear. Prior left parietal craniotomy. Small extra-axial hyperdense collection and a punctate focus of gas deep to the craniotomy site. The hyperdense collection measures 3.1 x 1.0 cm. This could represent expected postoperative fluid collection or a small focus of extra-axial hemorrhage. 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 Mild atrophy and microvascular ischemic changes are noted. No acute infarct or midline shift identified. Impression: Status post left parietal craniotomy. Deep to the craniotomy site there is a 3.1 x 1.0 cm hyperdense extra-axial collection containing a punctate focus of gas. This could represent an expected postoperative fluid collection or a small focus of acute extra-axial hemorrhage. Comparison to prior studies would be helpful to assess for stability. ACT 112: Negative or not required by law. Electronically signed by: Danis Morrison M.D. 03/26/2022 8:07 PM Diagnostic Findings Brain MRI initial read: Redemonstrated left parietal craniotomydefect. Redemonstrated convex appearing extra-axial fluid collection underlying the craniotomyflap at the posterior aspect left parietal lobe 3.5 x 1.3 cm. Signal intensityis most consistent with acute extra-axial hemorrhage. Redemonstrated small signal void consistent with gas bubble. Mild effacement of the underlying brain parenchymawithout edema or mass-effect on the ventricles. Mild irregular enhancement of the underlying brain parenchyma. Recommend correlation with preoperative studies to assess interval change. Mild diffuse leptomeningeal enhancement/thickening. Irregularlyperipherallyenhancing lesion in the left cerebral peduncle approximately1.5 x 1.1 x 1 cm without mass-effect. Although there is hyperintensityon precontrast T1-weighted imageswithin the lesion, there is no evidence for blood products on gradient images. Considerations include a subacute infarct, neoplasmincluding a partiallytreated mass. 6 mmsignal void on gradient images at the anterior aspect of the right middle cranial fossawithout definite enhancement postcontrast, consistent with the denselycalcified lesion seen on CT, possiblya small meningioma No evidence for an acute stroke. Redemonstrated old right basal ganglia and caudate lacunar infarct. Non- specificwhite matter changes, most commonlyseen with small vessel disease. No hydrocephalus. No midline shift. Basilar cisterns are intact EKG as per my interpretation :Rate 90, NSR, LAD, LAFB, LVH, T wave flattening lateral leads
[2022-03-26 22:26] LABS: Potassium 5.3 mmol/L (3.5-5.1)
[2022-03-26] MEDS ORDERED: GADOBUTROL 65ML VIAL IV ONE (23:09)
[2022-03-27] MEDS ORDERED: oxyCODONE HCL IR 5 MG TAB (IMMEDIATE RELEASE) PO PRN (00:19)
[2022-03-27] MEDS ORDERED: SOD PHOSPHATE/SOD BIPHOSPHATE ENEMA 132 ML BTL PR PRN (00:19)
[2022-03-27] MEDS ORDERED: GLUCOSE 10 TAB/TUBE PO PRN (00:19)
[2022-03-27] MEDS ORDERED: GLUCOSE 40% GEL 15 GM TUBE PO PRN (00:19)
[2022-03-27] MEDS ORDERED: CARBOHYDRATES FOR HYPOGLYCEMIA PO PRN (00:19)
[2022-03-27] MEDS ORDERED: ACETAMINOPHEN 325 MG TAB PO PRN (00:19)
[2022-03-27] MEDS ORDERED: GLUCAGON FOR INJ 1 MG VIAL SQ PRN (00:19)
[2022-03-27] MEDS ORDERED: POLYETHYLENE (MIRALAX) 17 GM PACK PO PRN (00:19)
[2022-03-27] MEDS ORDERED: PROMETHAZINE HCL 12.5 MG in SODIUM CHLORIDE 0.9% 50 ML IV PRN (00:19)
[2022-03-27] MEDS ORDERED: DOCUSATE SODIUM/SENNA 50/8.6MG TAB PO PRN (00:19)
[2022-03-27] MEDS ORDERED: DEXTROSE 50% 50 ML SYRINGE IV PRN (00:19)
[2022-03-27] MEDS: INSULIN ASPART PER UNIT SC SCH ×3 (00:39→12:42)
[2022-03-27] MEDS ORDERED: SULFAMETHOXAZOLE/TRIMETHOPRIM DS 800/160MG TAB PO ONE (01:00)
[2022-03-27 02:26] LABS: Troponin I High Sensitivity 63.2 pg/ml (0-14)
[2022-03-27 07:52] LABS: Basophils # (auto) 0.09 K/uL (0-0.2); Basophils % (auto) 0.5 %; Eosinophils # (auto) 0.05 K/uL (0-0.50); Eosinophils % (auto) 0.3 %; Hematocrit (blood only) 48.7 % (34.1-44.9); Hemoglobin 16.5 g/dl (12.0-16.0); Immature Granulocytes # (auto) 0.34 K/uL (0.00-0.02); Immature Granulocytes % (auto) 1.7 %; Lymphocytes # (auto) 3.12 K/uL (1.2-3.4); Lymphocytes % (auto) 15.8 %; Mean Corpuscular Hemoglobin 31.2 pg (25.0-34.0); Mean Corpuscular Hgb Conc 33.9 g/dL (32.0-36.0); Mean Corpuscular Volume 92.1 fL (80.0-100.0); Mean Platelet Volume 12.1 fL (9.4-12.3); Monocytes # (auto) 1.22 K/uL (0.24-0.82); Monocytes % (auto) 6.2 %; Neutrophils # (auto) 14.96 K/uL (1.4-6.5); Neutrophils % (auto) 75.5 %; Platelet Count 46 K/uL (130-400); RDW Coefficient of Variation 15.6 % (11.5-14.5); RDW Standard Deviation 52.3 fL (36.4-46.3); Red Blood Count 5.29 M/uL (3.93-5.22); White Blood Count 19.78 K/ul (4.8-10.8)
[2022-03-27] MEDS ORDERED: DOCUSATE SODIUM 100 MG CAP PO SCH (08:00)
[2022-03-27] MEDS ORDERED: UREA (UREA-NA) 15 GM PACK PO SCH (08:00)
--- NOTE | 2022-03-27 08:27 | Magnetic Resonance Report ---
MR brain wo/w con HISTORY: 61 years-old Female RUE weakness, acute strokelike symptoms. Recently biopsied brain mass, possibly toxoplasmosis in a patient with history of renal transplant. COMPARISON: Head CT of same day. TECHNIQUE: Multiplanar and multisequence MRI of the brain was obtained both with and without the use of 7 cc Gadavist. FINDINGS: No restricted diffusion identified to suggest acute or subacute infarct. 6 mm calcified extra-axial l esion within the right middle cranial fossa on image 11 series 7 with similar appearing 7 mm focus wi thin the left middle cranial fossa on image 9 series 7. These may represent calcified meningiomas. De generative changes of the cervical spine. 5 mm pineal gland cyst. Postoperative changes of left parietal craniotomy. Deep to the craniotomy site there is an ovoid 4.2 x 1.0 x 3.9 cm collection (image 16 series 6 and image 15 series 3) which contains areas of T1 hyperi ntensity compatible with blood products and a small focus of air. This appears to be extradural and c auses mild mass effect upon the adjacent parietal lobe. There is adjacent enhancement and mild thicke live of the pachymeningitis along with cortically-based adjacent increased T2/FLAIR signal. Periphera lly enhancing irregular intra-axial lesion of the left parietal lobe measures 1.6 cm on image 20 of t he axial Barnes series. There is an irregular enhancing 1.4 x 1.2 x 1.4 cm lesion centered within the left cerebral peduncle on image 13 of the axial Barnes series. This lesion demonstrates heterogeneousl y increased T2/FLAIR signal. No additional abnormal intracranial enhancement. Involutional changes with moderate T2/FLAIR hyperintense foci throughout the white matter. Chronic in farct of the right frontal lobe stevens radiata. Cerebral venous sinuses and major arterial flow voids appear patent. Unremarkable orbits. Mastoid air cells and paranasal sinuses are clear. IMPRESSION: 1. Postoperative changes of recent left parietal craniotomy. Deep to the craniotomy site there is a 4 .2 cm focus of hemorrhage external to the dura containing a trace focus of air. There is mild mass ef fect upon the adjacent left parietal lobe. 2. Pachymeningeal enhancement at the surgical site is noted along with a 1.6 cm focus of parenchymal enhancement within the left parietal lobe, likely correlating with the patient's recently biopsied le kam. 3. Irregular 1.4 cm enhancing lesion within the left cerebral peduncle may also be related to the pat ient's reported history of intracranial toxoplasmosis. Follow-up is recommended to exclude an underly ing neoplasm. 4. Chronic microvascular ischemic disease with chronic infarct of the right stevens radiata. ACT 112: Negative or not required by law. The above report was generated using voice recognition software. It may contain grammatical, syntax o r spelling errors. Dictated: 03/27/2022 7:44 AM Transcribed: 03/27/2022 8:13 AM Nay [id number] [email or web address] Electronically signed by: Brian Crisostomo M.D. 03/27/2022 8:26 AM
[2022-03-27 08:30] LABS: Albumin Level 2.7 gm/dl (3.4-5.0); Bilirubin,Total 0.6 mg/dl (0.2-1.0); Calcium 9.1 mg/dl (8.5-10.1); Potassium 5.1 mmol/L (3.5-5.1)
[2022-03-27 08:36] LABS: Albumin Globulin Ratio 0.9 (0.9-2); BUN Creatinine Ratio 38.2 (10-20); Creatinine Clr Calc Pharmacy 41.1 ml/min; Est GFR (African American) 50.1 ml/min; Est GFR (Non-African American) 43.2 ml/min; Globulin 2.9 gm/dl (2.5-4.0); Total Protein 5.6 gm/dl (6.0-8.3)
[2022-03-27] MEDS ORDERED: predniSONE 10 MG TABLET PO SCH (09:00)
[2022-03-27] MEDS ORDERED: SULFAMETHOXAZOLE/TRIMETHOPRIM DS 800/160MG TAB PO SCH (09:00)
--- NOTE | 2022-03-27 12:28 | Hospitalist Progress Note ---
Date of Service March 27, 2022 Assessment & Plan Admission and Anticipated Discharge Date Admission Date: March 26, 2022 Results & Data Results & Data ([facility]) Vital Signs (Past 12 Hours) Vital Signs Temp Pulse Resp BP Pulse Ox O2 Del Method 03/27/22 11:31 36.7 C 102 H 22 113/74 94 Room Air 03/27/22 08:00 Room Air 03/27/22 08:05 36.4 C L 99 H 16 111/80 93 Room Air 03/27/22 04:43 36.5 C 94 H 16 138/87 97 Room Air
--- NOTE | 2022-03-27 12:39 | Nephrology Consultation ---
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 per ID >> monitor K and bmp daily (4) Thrombocytopenia: recommend hematology consult and peripheral smear >> doubt bone marrow suppression (such as from abtx) given erythrocytosis daily cbc not receiving heparin renal function and MS holding so far (5) Brain bleed: hospitalist working on transfer to [facility] > 4 cm hemorrhage near craniotomy History of Present Illness Reason for Consultation: renal transplant pt w/ electrolyte issues on bactrim for NUTRITION TECH toxoplasmosis Requesting Physician: Dr De La Torre Attending Physician: Sivan De La Torre MD History of Present Illness 61 y/o F whom I'm asked to follow for electrolyte issues and transplant needs was admitted overnight w/ worsening R sided weakness, poor po intake, worsening cough from rehab and found to have Covid. She was recently admitted to [facility] 02/27/22-03/20/22 for evaluation of mixed solid and cystic mass in anterior L left midbrain, left baldemar and right frontal lobe ultimately dx'd as NUTRITION TECH toxoplasmosis. She had repeated lumbar punctures and underwent brain biopsy on March 08, 2022. Serum IgM and IgG were positive for toxoplasmosis, though less likely on ddx was post transplant lymphoproliferative disorder. Biopsy was negative for malignancy. Further infectious testing was also negative. She initially presented to [facility] on 02/25 with complaints of right-sided weakness. MRI revealed a new well-defined solid and cystic mass in her left mid brain as above. Recommendations at recent hospital d/c as follows: -For NUTRITION TECH toxoplasmosis inf dzs recommended 6 wks of 2 bactrim DS bid then 1 tablet indefinitely w/ f/u brain MRI in 3-4 wks. -for renal allograft, she was to continue Envarsus 2 mg daily; her myfortic was held d/t infection; she had a steroid taper with transition to home prednisone 5 mg daily dose. close in f/u w/ [facility] txplt was recommended. -concern for R renal cell carcinoma on imaging > for OP urology f/u w/ f/u imaging -for hyponatremia > placed on 1L FR daily w/ urea 15 gm bid and liquacell 30gm bid all of which can be stopped when sodium consistently > 135 -for hyperkalemia > she was started on lokelma 10 gm bid on MWF her allograft function ran 0.9-1.4 through the [facility] admission; was 1.2 at hospital discharge. her platelets had been well above 200 through 03/18 at [facility] then dropped to 110s from 03/19-03/21, to 73 on 03/23 and 42 on 03/26. Hgb has climbed in this timeframe from 15s to low 17s in [facility] lab records. 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 and [facility]. She was on peritoneal dialysis for several years prior to tr ansplant. also mild ambulatory dysfunction > uses a cane at baseline. She also had a series of infections at surgical incision fall 2021, including one needing admission to [facility]. Ongoing fatigue, generalized and right-sided arm weakness. no new visual disturbances or other focal weakness or numbness. she is dyspneic; no cough, no f/c. no chest or abdominal pain or n/v/d. no new /worrisome voiding concerns. Allergies Allergy/AdvReac Type Severity Reaction Status Date / Time Sulfa (Sulfonamide Allergy Intermediate RED RASH Verified 03/26/22 20:51 Antibiotics) tramadol AdvReac Intermediate "MAKES ME Verified 03/26/22 20:51 OUT THERE AND SICK" amoxicillin [From Augmentin] AdvReac Unknown Nausea Verified 03/26/22 20:51 clavulanic acid AdvReac Unknown Nausea Verified 03/26/22 20:51 [From Augmentin] Home Medications Medication Instructions Recorded Confirmed Type amlodipine 5 mg tablet 5 mg PO QAM 07/03/21 03/26/22 History docusate sodium 100 mg capsule 100 mg PO BIDM 07/03/21 03/26/22 History (Dulcolax Stool Softener (docusate)) acetaminophen 325 mg tablet 650 mg PO Q4H PRN Pain (Scale 03/26/22 03/26/22 History (Tylenol) Score 1-3) atorvastatin 20 mg tablet 20 mg PO DAILY 03/26/22 03/26/22 History bisacodyl 10 mg rectal suppository 10 mg OR DAILY PRN Constipation 03/26/22 03/26/22 History insulin aspart U-100 100 unit/mL 6 unit subcut TIDM 03/26/22 03/26/22 History subcutaneous solution (Novolog U-100 Insulin aspart) magnesium hydroxide 400 mg/5 mL 30 ml PO DAILY PRN Constipation 03/26/22 03/26/22 History oral suspension (Milk of Magnesia) ondansetron HCl 4 mg tablet 4 mg PO Q4H PRN NAUSEA/VOMITING 03/26/22 03/26/22 History polyethylene glycol 3350 17 17 g PO QDL PRN Constipation 03/26/22 03/26/22 History gram/dose oral powder (Miralax) prednisone 10 mg tablet 10 mg PO DIRECTED 03/26/22 03/26/22 History sennosides 8.6 mg-docusate sodium 1 tab-cap PO QDL PRN Constipation 03/26/22 03/26/22 History 50 mg tablet (Senokot-S) sodium phosphates 19 gram-7 118 ml OR DAILY PRN Constipation 03/26/22 03/26/22 History gram/118 mL enema (Fleet Enema) sulfamethoxazole 800 1 tab PO Q12H 03/26/22 03/26/22 History mg-trimethoprim 160 mg tablet (Bactrim DS) tacrolimus 1 mg tablet,extended 2 mg PO DAILY 03/26/22 03/26/22 History release 24 hr (Envarsus XR) urea 15 gram oral powder packet 1 packet PO BIDM 03/26/22 03/26/22 History Patient History Medical History (Updated 03/27/22 @ 13:29 by Danielle Garduno MD, PhD) NUTRITION TECH toxoplasmosis Electrolyte and fluid disorder Elevated LFTs 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 Hyperlipidemia Hypertension Liver lesion Pancreatic cyst Status post stereotactic brain biopsy [facility] February 2022 Thrombocytopenia Surgical History (Updated 03/27/22 @ 13:13 by Danielle Garduno MD, PhD) Abnormal biopsy of kidney X2 History of section X2 History of cholecystectomy History of colonoscopy History of hysterectomy History of parathyroidectomy HX: benign breast biopsy LEFT Nausea and vomiting after administration of anesthetic agent WITH BREAST BIOPSY Renal transplant recipient Family History Mother Family history of diabetes mellitus Social History Smoking Status: Never smoker Second Hand Exposure: No; Do You Dip or Chew Tobacco: No; Hx Alcohol Use: No Hx Substance Use: No Preferred Language: Latvian Communication Ability: Impaired Cardiovascular Sonographer Required: No Beliefs That Will Affect Care: None Current Living Situation: Rehab Current Living Situation Comment: [facility] current occupational status: retired Other Information That Helps Us Care for You: No Feels Safe at Home: Yes Safety Concerns: Feels Safe At This Time Assistive Devices: Glasses, Hearing Aid - Bilateral and Walker Review of Systems Review of Systems: All systems reviewed & are unremarkable except as noted in HPI & below Physical Exam Constitutional: well developed, + ill appearing, + frail appearing and cooperative; no acute distress Eyes: + eyelid abnormality (holding L eye closed); + EOM not intact (but in R eye intact) ENMT: Ears: no external ear abnormality Nose: no external nose abnormality Mouth: + dry oral mucous membranes Neck: no nuchal rigidity Respiratory: normal respiratory effort Auscultation: + diminished lung sounds Cardiovascular: Rate/Rhythm: regular rhythm and + tachycardic Extremities: no edema Gastrointestinal (Abdomen): Inspection/Auscultation: normal bowel sounds Percussion/Palpation: abdomen soft; abdomen nontender (including RLQ NT renal allograft) Musculoskeletal: Extremities: + abnormal strength (R ue / r side weakness) Skin: no rashes, warm and dry Neurologic: brewer but diminished R arm, fluent speech, no tremor Psychiatric: Orientation: oriented x 3 (some psychomotor delay) Results & Data ([facility]) Vital Signs (Past 12 Hours) Vital Signs Temp Pulse Resp BP Pulse Ox O2 Del Method 03/27/22 11:31 36.7 C 102 H 22 113/74 94 Room Air 03/27/22 08:00 Room Air 03/27/22 08:05 36.4 C L 99 H 16 111/80 93 Room Air 03/27/22 04:43 36.5 C 94 H 16 138/87 97 Room Air Laboratory Results 03/27/22 07:15 03/27/22 07:15 UA reviewed Diagnostic Findings MRI 1. Postoperative changes of recent left parietal craniotomy. Deep to the craniotomy site there is a 4.2 cm focus of hemorrhage external to the dura containing a trace focus of air. There is mild mass effect upon the adjacent left parietal lobe. 2. Pachymeningeal enhancement at the surgical site is noted along with a 1.6 cm focus of parenchymal enhancement within the left parietal lobe, likely correlating with the patient's recently biopsied lesion. 3. Irregular 1.4 cm enhancing lesion within the left cerebral peduncle may also be related to the patient's reported history of intracranial toxoplasmosis. Follow-up is recommended to exclude an underlying neoplasm. 4. Chronic microvascular ischemic disease with chronic infarct of the right stevens radiata. cxr clear lung joseph
[2022-03-27] MEDS ORDERED: TACROLIMUS 1 MG CAP PO SCH (12:45)
--- NOTE | 2022-03-27 13:55 | Discharge Summary ---
Discharge Summary Date of Service March 27, 2022 Notes For Next Care Provider Follow up management at [facility] Medication Changes From Visit No changes Admission HPI Per Admitting Provider History obtained from patient, family, and records. 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 Recent confinement [facility] February 27, 2022 to March 20, 2022 for right-sided weakness and left eye ptosis attributed to [employer] toxoplasmosis with note of positive serology. Brain biopsy done March 08, 2022 was negative for malignancy given initial concern for lymphoma given immunocompromise from immunosuppression regimen. [facility] ID recommended 6 weeks of Bactrim double strength 2 tabs twice daily (until 04/26) followed by 1 tablet daily indefinitely. Lokelma 3 times a week recommended to help with hyperkalemia while on Bactrim. Patient to continue tacrolimus and prednisone immunosuppressants. Mycophenolic acid recommended to be held due to [employer] infection. Brain MRI (03/18/2022) results as follows: Since 02/26/2022, known numerous cortical and leptomeningeal enhancing lesions are overall smaller, and associated signal abnormalities have improved. No new lesions are seen. Interval left parietal mini-craniotomy for biopsy of underlying lesion. Irregular enhancement at the lesion biopsy site is larger. Given improvement of nearly all other lesions, this progression is likely postsurgical/inflammatory. Pachymeningeal thickening and enhancement subjacent craniotomy and diffusely over the left convexity is favored to be reactive. Small volume extradural fluid and blood products collection is largely confined within the craniotomy margins. Follow-up brain MRI recommended April 2021. 1 L fluid restriction and urea recommended for hyponatremia/SIADH secondary to [employer] toxoplasmosis. Right renal tumor possible malignancy incidentally found on CT abdomen pelvis work-up during [facility] confinement. Outpatient urology evaluation recommended. Patient discharged to [facility] rehab facility last week. Decreased p.o. intake and activity over the last few days. Cough symptoms productive of clear sputum without chest pain or shortness of breath. Patient with COVID-19 infection. This afternoon patient right upper extremity noted to be weaker than usual. Patient leaning more to the right side. Patient denies headache, nausea vomiting symptoms. Patient brought to the ER for evaluation. 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 Admission Exam Per Admitting Provider GENERAL: Slightly uncomfortable, mild dysarthria, no respiratory distress SKIN: Normal color, warm HEENT: Sparse hair, pale palpebral conjunctivae, left ptosis, dry buccal mucosa NECK : Supple, no tenderness CHEST : CTA, no tenderness HEART : RRR, no obvious murmurs ABDOMEN: Some distention, nontender EXTREMITIES : No LE swelling/tenderness, no other conspicuous deformities noted NEUROLOGIC : Coherent, left ptosis, mild dysarthria, MMTs RUE 3/5, RLE 2/5, LUE/LLE 4/5, gait and stance not assessed Principal Dx & Hospital Course #1 = Principal Diagnosis (1) RUE weakness: (2) [employer] toxoplasmosis: (3) Brain bleed: (4) COVID-19 virus infection: Plan Patient was recently at [facility] for 3 weeeks for right sided weakness and left ptosis She was extensively evaluated and had craniotomy with brain biopsy Was started on management for [employer] toxoplasmosis with Bactrim and discharged to rehab on 03/20/22 Developed worsening weakness, poor appetite, cough Found to be positive to COVID on presentation CXR did not show any acute abnormalities CT head noted s/p left parietal craniotomy, 3.1x1cm hyperdense extra-axial col lection with a punctate focus of gas which could represent post op fluid collection or small focus of acute extra-axial hemorrhage MRI brain noted left parietal craniotomy post op changes, 4.2cm focus of hemorrhage external to the dura containg trace of focus of air with mild mass effect upon adjacent left parietal lobe; pachymeningeal enhancement at surgical site likely correlating to recent biopsy, irregular 1.4cm enhancing lesion in left cerebral peduncle which may be realted to recent intracranial toxoplasmosis I called [facility] transfer center. I spoke with Neurosurgeon Dr RiosCharles Dr and ICU Dr Warner. Patient accepted for transfer to [facility] ICU under Dr Warner for continuing evaluation and management Discharge Exam Constitutional + ill appearing; no acute distress Eyes Left ptosis ENMT external ear and nose normal, oropharynx normal Respiratory normal respiratory effort, lungs clear to auscultation Cardiovascular Rate/Rhythm: regular rate and regular rhythm S1 S2 Gastrointestinal (Abdomen) normal bowel sounds, soft, nontender, no hepatosplenomegaly Musculoskeletal No pedal edema Neurologic Left ptosis Power is 3/5 on RUE/RLE and 4/5 on the LUE and LLE Touch is grossly intack Psychiatric A+Ox3, euthymic affect Updated Medication List Medication Instructions Recorded Confirmed Type amlodipine 5 mg tablet 5 mg PO QAM 07/03/21 03/26/22 History docusate sodium 100 mg capsule 100 mg PO BIDM 07/03/21 03/26/22 History (Dulcolax Stool Softener (docusate)) acetaminophen 325 mg tablet 650 mg PO Q4H PRN Pain (Scale 03/26/22 03/26/22 History (Tylenol) Score 1-3) atorvastatin 20 mg tablet 20 mg PO DAILY 03/26/22 03/26/22 History bisacodyl 10 mg rectal suppository 10 mg [place] DAILY PRN Constipation 03/26/22 03/26/22 History insulin aspart U-100 100 unit/mL 6 unit subcut TIDM 03/26/22 03/26/22 History subcutaneous solution (Novolog U-100 Insulin aspart) magnesium hydroxide 400 mg/5 mL 30 ml PO DAILY PRN Constipation 03/26/22 03/26/22 History oral suspension (Milk of Magnesia) ondansetron HCl 4 mg tablet 4 mg PO Q4H PRN NAUSEA/VOMITING 03/26/22 03/26/22 History polyethylene glycol 3350 17 17 g PO QDL PRN Constipation 03/26/22 03/26/22 History gram/dose oral powder (Miralax) prednisone 10 mg tablet 10 mg PO DIRECTED 03/26/22 03/26/22 History sennosides 8.6 mg-docusate sodium 1 tab-cap PO QDL PRN Constipation 03/26/22 03/26/22 History 50 mg tablet (Senokot-S) sodium phosphates 19 gram-7 118 ml [place] DAILY PRN Constipation 03/26/22 03/26/22 History gram/118 mL enema (Fleet Enema) sulfamethoxazole 800 1 tab PO Q12H 03/26/22 03/26/22 History mg-trimethoprim 160 mg tablet (Bactrim DS) tacrolimus 1 mg tablet,extended 2 mg PO DAILY 03/26/22 03/26/22 History release 24 hr (Envarsus XR) urea 15 gram oral powder packet 1 packet PO BIDM 03/26/22 03/26/22 History Hospital Stay Data Consultations 03/26/22 20:29 ED Decision to Admit Stat 03/27/22 09:29 Consult Nephrology Routine Diagnostic Imagining Performed 03/26/22 17:59 CT head/brain wo con Stat The paranasal sinuses and mastoid air cells are clear. Prior left parietal craniotomy. Small extra-axial hyperdense collection and a punctate focus of gas deep to the craniotomy site. The hyperdense collection measures 3.1 x 1.0 cm. This could represent expected postoperative fluid collection or a small focus of extra-axial hemorrhage. 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 Mild atrophy and microvascular ischemic changes are noted. No acute infarct or midline shift identified. Impression: Status post left parietal craniotomy. Deep to the craniotomy site there is a 3.1 x 1.0 cm hyperdense extra-axial collection containing a punctate focus of gas. This could represent an expected postoperative fluid collection or a small focus of acute extra-axial hemorrhage. Comparison to prior studies would be helpful to assess for stability. 03/26/22 21:46 MR brain wo/w con Stat No restricted diffusion identified to suggest acute or subacute infarct. 6 mm calcified extra-axial lesion within the right middle cranial fossa on image 11 series 7 with similar appearing 7 mm focus within the left middle cranial fossa on image 9 series 7. These may represent calcified meningiomas. Degenerative changes of the cervical spine. 5 mm pineal gland cyst. Postoperative changes of left parietal craniotomy. Deep to the craniotomy site there is an ovoid 4.2 x 1.0 x 3.9 cm collection (image 16 series 6 and image 15 series 3) which contains areas of T1 hyperintensity compatible with blood products and a small focus of air. This appears to be extradural and causes mild mass effect upon the adjacent parietal lobe. There is adjacent enhancement and mild thickening of the pachymeningitis along with cortically-based adjacent increased T2/FLAIR signal. Peripherally enhancing irregular intra-axial lesion of the left parietal lobe measures 1.6 cm on image 20 of the axial Barnes series. There is an irregular enhancing 1.4 x 1.2 x 1.4 cm lesion centered within the left cerebral peduncle on image 13 of the axial Barnes series. This lesion demonstrates heterogeneously increased T2/FLAIR signal. No additional abnormal intracranial enhancement. Involutional changes with moderate T2/FLAIR hyperintense foci throughout the white matter. Chronic infarct of the right frontal lobe stevens radiata. Cerebral venous sinuses and major arterial flow voids appear patent. Unremarkable orbits. Mastoid air cells and paranasal sinuses are clear. IMPRESSION: 1. Postoperative changes of recent left parietal craniotomy. Deep to the craniotomy site there is a 4.2 cm focus of hemorrhage external to the dura containing a trace focus of air. There is mild mass effect upon the adjacent lef t parietal lobe. 2. Pachymeningeal enhancement at the surgical site is noted along with a 1.6 cm focus of parenchymal enhancement within the left parietal lobe, likely correlating with the patient's recently biopsied lesion. 3. Irregular 1.4 cm enhancing lesion within the left cerebral peduncle may also be related to the patient's reported history of intracranial toxoplasmosis. Follow-up is recommended to exclude an underlying neoplasm. 4. Chronic microvascular ischemic disease with chronic infarct of the right stevens radiata. Pending Results Patient Have Any Pending Studies at Discharge: No Discharge Instructions Given to Patient (Per Discharging Provider) You are being transferred to [facility] for continued management Total Time Total Time Spent Total Time Spent (In Minutes): 60 Total Time Includes: Examination of the Patient, Discharge Planning, Medication Reconciliation and Communication With Other Providers
[2022-03-27] MEDS ORDERED: TACROLIMUS 1 MG PO SCH (14:00)
--- NOTE | 2022-03-28 06:36 | Electrocardiogram Report ---
Test Reason : Blood Pressure : / mmHG Vent. Rate : 092 BPM Atrial Rate : 092 BPM P-R Int : 114 ms QRS Dur : 090 ms QT Int : 350 ms P-R-T Axes : -06 -35 088 degrees QTc Int : 432 ms Normal sinus rhythm Left axis deviation Minimal voltage criteria for LVH, may be normal variant Abnormal ECG When compared with ECG of 16-APR-2010 12:57, No significant change was found Confirmed by Rk Ridley ([id number]) on 03/28/2022 6:35:46 AM Referred By: [facility] Confirmed By:Rk Ridley
[2022-03-28] MEDS ORDERED: predniSONE 10 MG TABLET PO SCH (09:00)
[2022-04-27] MEDS ORDERED: SULFAMETHOXAZOLE/TRIMETHOPRIM DS 800/160MG TAB PO SCH (09:00)
== END 2022-03-27 16:25 | disposition short-term general hospital (02) | DRG 867 ==
LOC: ED 17:42 → SUATTDRO 21:40 → 2E 21:40